=== PATIENT | male | born 1995 | race Hispanic/Latino ===

== ENCOUNTER → 2024-10-06 15:16 | Outpatient (CLI) | payer OTHER, SELFPAY ==
--- NOTE | 2024-10-06 | DI.MRI.S_ITS ---
PROCEDURE: MR SHOULDER LT W CON INDICATIONS: PAIN - left TECHNIQUE: After the administration of 12 mL of dilute intra-articular Gadolinium contrast, oblique coronal T1 and T2 spin echo with fat saturation, oblique sagittal T1 spin echo with and without fat saturation, oblique sagittal T2 fast spin echo with fat saturation, axial T1 spin echo with fat saturation through the shoulder. COMPARISON: None. FINDINGS: Image quality: Excellent. Rotator cuff: Low-grade bursal surface partial-thickness tear involving distal supraspinatus at its insertion on the humeral head is seen extending to musculotendinous junction. Distal infraspinatus and subscapularis tendinosis is seen. No full- thickness rotator cuff tendon rupture. No rotator cuff muscle atrophy on sagittal images. Bones and bursae: No bone marrow contusions or fractures. Mild to moderate acromioclavicular joint osteoarthritic changes are seen. Type 1 acromion without an os acromiale. Capsule and soft tissues: No definite focal labral tear. The glenohumeral ligaments appear intact. The long head of the biceps tendon demonstrates normal location and morphology. The rotator interval appears normal, without fibrosis. The coracohumeral ligament is of normal thickness. No intra-articular bodies. IMPRESSION: 1. Low-grade bursal surface partial-thickness tear involving distal supraspinatus extending to musculotendinous junction. Mild distal infraspinatus and subscapularis tendinosis. No full-thickness rotator cuff tendon rupture. No muscle atrophy. 2. [id number] acromioclavicular joint osteoarthritis. No fracture or dislocation. No intra-articular loose bodies. 3. No evidence of focal labral tear. Dictated by: Gerardo Cavazos M.D. on 10/07/2024 at 14:47 Approved by: Gerardo Cavazos M.D. on 10/07/2024 at 14:49
--- NOTE | 2024-10-06 15:21 | DI.RAD.S_ITS ---
PROCEDURE: FL ARTHROGRAM SHOULDER LT INDICATIONS: SHOULDER PAIN COMPARISON: None. TECHNIQUE: The indications, alternatives, benefits, risks, and complications of the procedure were explained to the patient. Written informed consent was obtained and placed in the chart. The shoulder was examined fluoroscopically and a site for needle placement chosen for entry into the glenohumeral joint from an anterior approach. The skin was prepped and draped in a sterile fashion, and 1% lidocaine infiltrated from skin down to joint capsule. A spinal needle was inserted into the glenohumeral joint, and a small amount of iodinated contrast media injected to confirm intra-articular placement of the needle tip. This was followed by approximately 12 mL dilute solution of a gadolinium containing MR contrast agent. The needle was removed and a dressing was applied. The patient was given postprocedural instructions and sent to the MR suite for MR imaging. FINDINGS: A single fluoroscopic spot image demonstrates intra-articular location of injected iodinated contrast. IMPRESSION: Successful fluoroscopically guided administration of dilute Gadolinium solution into the shoulder joint for MR arthrogram. Dictated by: Dusty Mendoza M.D. on 10/06/2024 at 16:45 Approved by: Dusty Mendoza M.D. on 10/06/2024 at 16:45
[2024-10-06] MEDS: LIDOCAINE 1% 20 ML INJ (16:32)
[2024-10-06] MEDS: SODIUM CHLORIDE 0.9 % 20 ML VIAL IV (16:32)
== END ==
PROVIDERS: Referring Provider Student in an Organized Health Care Education/Training Program; Visit Provider Student in an Organized Health Care Education/Training Program
DX: M75.112 Incomplete rotator cuff tear or rupture of left shoulder, not specified as traumatic (principal); M19.012 Primary osteoarthritis, left shoulder; M25.512 Pain in left shoulder
CPT/HCPCS: 23350; 73040; 73222; A9579; Q9967

== ENCOUNTER → 2024-11-17 15:43 | Outpatient (CLI) | payer OTHER, SELFPAY ==
[2024-11-17 18:36] LABS: Add Manual Diff / Slide Review NO; Hematocrit 39.6 % (41-53); Hemoglobin 13.8 g/dL (13.5-17.5); Lymphocytes Absolute Auto 2400 /uL (1100-4500); Mean Corpuscular HGB Conc 34.8 % (30-36); Mean Corpuscular Hemoglobin 29.0 PG (26-34); Mean Corpuscular Volume 83.4 fL (80-100); Platelet Count 189 X10^3/uL (150-400)
[2024-11-17 18:38] LABS: Lipase 54 U/L (23-300)
[2024-11-17 20:14] LABS: Amylase 65 U/L (30-110)
== END ==
PROVIDERS: Referring Provider Chiropractor; Visit Provider Chiropractor
DX: D50.9 Iron deficiency anemia, unspecified (principal)
CPT/HCPCS: 36415; 82150; 83690; 85025